=== PATIENT | male | born 1955 | race Caucasian/White ===

== ENCOUNTER 2020-04-07 17:55 | Emergency (ER) | payer BC ==
[~2020-04-07] VITALS: Ht 177.8 cm; Wt 90.7 kg
[2020-04-07 18:11] VITALS: BP 140/75
--- NOTE | 2020-04-07 18:21 | NUR ---
ED Nurse Note: Patient from home and walked in for covid antibody infusion. Patient tested covid positive today 04/07/20. Pt c/o coughing and bodyaches. No apparent SOB. Pt is AAO x4, ambulatory
[2020-04-07] MEDS ORDERED: Regeneron EUA 2,400 MG in NS 255 ML IVPB SCH (18:30)
[2020-04-07] MEDS ORDERED: Regeneron EUA MISC ONE (18:30)
--- NOTE | 2020-04-07 19:09 | NUR ---
HAND-OFF: Report given to Alva LYNN.
--- NOTE | 2020-04-07 19:18 | Emergency Room Report ---
History of Present Illness General Chief Complaint: Flu Like Symptoms Source: Patient Present Illness HPI 64-year-old male presents to ED for evaluation. Referred for monoclonal antibody infusion. Tested positive for Covid this morning. Has cough and body aches. 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 Has multiple risk factors including hypertension and diabetes. Denies chest pain or s hortness of breath. No other aggravating relieving factors. Denies any other associated symptoms Allergies: Coded Allergies: No Known Allergies (Unverified , 04/07/20) COVID-19 Screening Contact w/high risk pt: No Experienced COVID-19 symptoms?: Yes COVID-19 Testing performed [employer]PRES[employer]IVE: Yes COVID-19 Screening: Negative COVID-19 COVID-19 Testing Source: 04/07/2020 Patient History Past Medical History: DM, HTN Past Surgical History: none Pertinent Family History: none Social History: Denies: smoking, alcohol use, drug use Immunizations: UTD Reviewed Nursing Documentation: PMH: Agreed; PSxH: Agreed Nursing Documentation-PMH Past Medical History: No Stated History Hx Hypertension: Yes Hx Diabetes: Yes Review of Systems All Other Systems: negative except mentioned in HPI Physical Exam Vital Signs Date Time Temp Pulse Resp B/P (MAP) Pulse Ox O2 Delivery O2 Flow Rate FiO2 04/07/20 18:11 99.0 93 19 140/75 96 Room Air Sp02 EP Interpretation: reviewed, normal General Appearance: no apparent distress, alert, GCS 15, non-toxic Head: normocephalic, atraumatic Eyes: bilateral eye normal inspection, bilateral eye PERRL ENT: hearing grossly normal, normal pharynx, no angioedema, normal voice Neck: full range of motion, supple/symm/no masses Respiratory: chest non-tender, lungs clear, normal breath sounds, speaking full sentences Cardiovascular #1: regular rate, rhythm, no edema Cardiovascular #2: 2+ carotid (R), 2+ carotid (L), 2+ radial (R), 2+ radial (L), 2+ dorsalis pedis (R), 2+ dorsalis pedis (L) Gastrointestinal: normal bowel sounds, non tender, soft, non-distended, no guarding, no rebound Rectal: deferred Genitourinary: normal inspection, no CVA tenderness Musculoskeletal: back normal, normal range of motion, gait/station normal, non- tender Neurologic: alert, motor strength/tone normal, oriented x3, sensory intact, responsive, speech normal Psychiatric: judgement/insight normal, memory normal, mood/affect normal, no suicidal/homicidal ideation Reflexes: 3+ bicep (R), 3+ bicep (L), 3+ tricep (R), 3+ tricep (L), 3+ knee (R), 3+ knee (L) Lymphatic: no adenopathy Medical Decision Making Diagnostic Impression: Primary Impression: COVID-19 ER Course ER Course [facility] - REGN-COV2 Infusion - FDA EUA. - Reviewed/ d/w pt. the REGN-COV2 Infusion Drug fact sheet for patients who are considering receiving IV infusion. Pt. understands and is aware that this medication has authorization from the FDA for Emergency Use only, and is still undergoing full testing and monitoring before it can be fully authorized by the FDA. Pt. also understands that this medication is intended to reduce or prevent need for severe hospitalization and invasive interventions that are known to arise in high risk patients who are infected with the nCoV-2019. Pt. understands this is not a cure/treatment for full remission of COVID-19. Pt. educated and understands that the safety and effectiveness of the REGN-COV2 Infusion is limited at this time. The pt. is educated on possible side effects as well as possibility of severe side effects/reactions that may arise. Pt. is educated and aware that any senior living effects arising from this FDA- EUA COVID-19 treatment is not known at this time. After education and chance to ask any questions or receive additional clarification, this patient has decided to move forward and receive the REGN- COV2 Infusion for COVID-19 under FDA emergency use authorization here in the Emergency Dept. Infusion is administered via IV over the duration of 1 hour. The patient is monitored and observed for any reactions to infusion that require acute medical intervention. The patient did not have any significant reactions during the 1 hour observation period following infusion. Pt. was given their own copy of the REGN-COV2 Infusion fact sheet to take home. Last Vital Signs Date Time Temp Pulse Resp B/P (MAP) Pulse Ox O2 Delivery O2 Flow Rate FiO2 04/07/20 18:19 93 19 Room Air 04/07/20 18:11 99.0 140/75 (96) 96 Status: improved Disposition: HOME, SELF-CARE Condition: Stable Referrals: NON PHYSICIAN (PCP) Jimmy Zhu MD Apr 07, 2020 19:18
[2020-04-07 19:20] VITALS: BP 136/72
--- NOTE | 2020-04-07 19:28 | NUR ---
ED Nurse Note: Recived care from Anna Montesinos Pt is resting comfortably vitals stable on RA. He has read the fact sheet and consents to treatment. He is able to speak in full sentances, breathing is even and unlabored, denies chest pain, no signs of distress noted.
--- NOTE | 2020-04-07 20:12 | NUR ---
ED Nurse Note: Started infusion at 19:10 ended at 2009. Pt is resting comfortably, eyes are closed, breathing is unlabored, vitals have remained stable on RA. No complaints of chest pain or back pain. No swelling, itching or rash reported. Pt under observation for the next hour. Pts spouse has been updated.
[2020-04-07 20:14] VITALS: BP 135/76
--- NOTE | 2020-04-07 21:07 | NUR ---
ER DISCHARGE NOTE: Patient is cleared to be discharged per ERMD, pt is aox4, on room air, with stable vital signs. pt was given dc and prescription instructions, pt was able to verbalize understanding, pt id band and iv site removed without complications. pt is able to ambulate with steady gait. pt took all belongings. Pt left in a private car. He had no adverse reactions to the infusion. Used teach back technique about isolation and COVID education. Pt left in a private car.
[2020-04-07 21:08] VITALS: BP 144/75
== END 2020-04-07 21:10 | disposition home or self-care (01) ==
LOC: EMR 18:32
DX: U07.1 COVID-19 (principal); R05 Cough; M79.10 Myalgia, unspecified site; E11.9 Type 2 diabetes mellitus without complications; I10 Essential (primary) hypertension; Z23 Encounter for immunization
CPT/HCPCS: 96365; 99284; J7050; Q0243